=== PATIENT | female | born 1975 | race Caucasian/White ===

== ENCOUNTER 2017-10-06 18:50 | Observation (INO) | payer OTHER ==
[~2017-10-06] VITALS: Ht 162.6 cm; Wt 115.8 kg
--- NOTE | ~2017-10-06 | EKG ---
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
--- NOTE | ~2017-10-06 | HC ---
[facility] [place] [address] CONSULTATION Name: RODOLFO ELIZONDO Room #: 209-P ADM IN M.R.#: [id number] Admission: 10/06/17 Attend Phys: Varun Parks DO Discharge: Date of : 75 Report #: [id number] THIS REPORT FOR: //name// CC: Chon BROWN physician/PCP DATE OF SERVICE: 10/07/2017 INDICATION: Chest pain. HISTORY OF PRESENT ILLNESS: This is a 42-year-old female with a history of GERD, tobacco use, asthma, who presented with chest pain. She reports having a discomfort in the substernal area, nonradiating. It is associated with dyspnea and numbness of the fingers. It comes and goes. She did have an episode while she was in the ER at [facility] last week. A CT angio of the chest was unremarkable for PE. She was discharged home. She had a repeat episode yesterday, occurred while she was watching TV. There were no alleviating or aggravating factors. It does not appear to be associated with exertion. There is no history of fever, nausea, diarrhea or orthopnea. PAST MEDICAL HISTORY: Denies diabetes or hypertension. ALLERGIES: PENICILLIN. MEDICATIONS: None. SOCIAL HISTORY: Smokes half a pack of cigarettes per day. FAMILY HISTORY: Negative for premature CAD. REVIEW OF SYSTEMS: A full 10-point review of systems was performed. Only the pertinent positives and negatives are described in HPI. PHYSICAL EXAMINATION: VITAL SIGNS: Blood pressure 130/70, heart rate is 80 beats per minute. GENERAL APPEARANCE: An overweight female, in no acute respiratory distress. HEAD AND EYES: Normocephalic. Sclerae are anicteric. ENT: Oral mucosa moist. NECK: Supple. LUNGS: Clear to auscultation. CARDIAC: Regular rate and rhythm, S1, S2 positive. ABDOMEN: Soft, nontender. EXTREMITIES: No cyanosis and no edema. ECG reveals sinus tachycardia, no acute ST segment changes. [facility] [address] [place] [address] CONSULTATION Name: CARMEN ELIZONDOIRA Room #: 209-P [facility] IN .R.#: [id number] Admission: 10/06/17 Attend Phys: Varun Parks DO Discharge: Date of : 75 Report #: [id number] LABORATORY VALUES: Troponin is negative x 3. Sodium is 139, creatinine is 0.8. LDL is 140. White count is 9.1, hemoglobin is 11.7. IMPRESSION AND PLAN: 1. Chest pain syndrome, does not appear to be ischemic by history. Serial troponin levels are negative and the ECG is unremarkable. However, she does have significant CAD risk factors. The plan is to proceed with noninvasive stress testing. 2. Tobacco use, complete smoking cessation is advised. 3. Hypercholesterolemia, try to lower the LDL by dietary modifications. 4. Gastroesophageal reflux disease, probably a contributing factor to her current symptoms. <ELECTRONICALLY SIGNED> By: Saul Bashir MD 10/08/17811 [id number] Saul Bashir MD /yessica
--- NOTE | ~2017-10-06 | EXE ---
[facility] [address] [place] [address] STRESS ECHOCARDIOGRAM Name: RODOLFO ELIZONDO Room #: 209-P [facility] IN M.R.#: [id number] Admission: 10/06/17 Attend Phys: Varun Parks, Discharge: Date of : 75 Date of Service: 10/08/17 [facility] Report #: [id number] THIS REPORT FOR: //name// APPROVED REPORT Study performed: 10/08/2017 13:55:52 Exam: Stress Echocardiogram Indication: Chest pain Patient Location: In-Patient Stress Nurse: Chiquita Sumner RN Room #: 209 Status: routine Ht: 5 ft 4 in HR: 84 bpm BP: 133/71 mmHg Rhythm: NSR Medical History Allergies: Penicillan Procedure The patient underwent an Exercise Stress Test using the Fox Protocol. Blood pressure, heart rate, and EKG were monitored. An Echocardiogram was performed by hemodialysis technician in four stages in quad fashion. At peak stress, four selected images were obtained and placed side by side with resting images for comparison. Stress Test Details Stress Test: Exercise stress testing was performed using a Fox protocol. HR Resting HR: 84 bpm Max Heart Rate (APMHR): 178 bpm Max HR Achieved: 179 bpm Target HR (85% APMHR): 151 bpm % of APMHR: 100 Recovery HR: 107 bpm HR response to stress: Normal HR response to stress BP Resting BP: 133/71 mmHg Max BP: 165/85 mmHg Recovery BP: 130/64 mmHg ECG Resting ECG: Sinus Rhythm [facility] [address] [place] [address] STRESS ECHOCARDIOGRAM Name: RODOLFO ELIZONDO Room #: 209-P [facility] IN ..#: [id number] Admission: 10/06/17 Attend Phys: Varun Parks, Discharge: Date of : 75 Date of Service: 10/08/17 1500 Report #: [id number] Stress ECG: Sinus Rhythm, nonspecific ST-T abnormalities ST Change: Non-ischemic Maximum ST Deviation: 0 mm Clinical Reason for Termination: Severe fatigue Stress Symptoms: Fatigue, Dyspnea Exercise duration: 6 min sec Highest Stage Achieved: Stage 2: 2.5 mph at 12% grade. Exercise capacity: 7.20 METs Pre-Stress Echo The resting Echocardiogram showed normal left ventricular contractility with an estimated Ejection Fraction of about 55-60%. Normal wall motion in all segments on baseline images. Post-Stress Echo The stress Echocardiogram showed normal left ventricular contractility with an estimated Ejection Fraction of about 65-70%. Normal augmentation of wall motion in all segments on post stress images. Clinical No clinical or ECG evidence for ischemia. Conclusion Clinical Response: Non-ischemic Exercise Capacity: Below Average Stress ECG Response: Non-ischemic Stress Echo Images: Non-ischemic The left ventricle is normal in size and wall thickness in both the rest and stress images. Other Information Study Quality: Adequate <Conclusion> The left ventricle is normal in size and wall thickness in both the rest and stress images. <ELECTRONICALLY SIGNED> By: Saul Bashir MD 10/08/17 1500 1500 1500 Saul Bashir MD /INF
[2017-10-06 19:07] VITALS: BP 154/93
[2017-10-06 19:46] LABS: ABSOLUTE NEUTROPHILS 6.9 thou/uL (1.4-8.2); BASOPHILS 0.8 % (0.0-2.0); EOSINOPHILS 0.4 % (0.0-3.0); HEMATOCRIT 35.6 % (37.0-47.0); HEMOGLOBIN 11.7 gm/dL (12.0-15.0); LYMPHOCYTES 17.2 % (24.0-44.0); MCHC 32.8 g/dL (28.0-37.0); MCV 79.2 fL (80.0-100.0); MONOCYTES 4.3 % (1.0-8.0); PLATELET COUNT 389 thou/uL (150-400); POLYS 77.3 % (36.0-66.0); RBC 4.49 mil/uL (4.20-5.00); RDW 16.4 % (10.5-14.5)
[2017-10-06 19:47] LABS: ANION GAP 6 mmol/L (7-16); BUN 7 mg/dL (7-18); CALCIUM 9.4 mg/dL (8.5-10.1); CHLORIDE 102 mmol/L (98-107); CO2 27 mmol/L (21-32); CREATININE 0.9 mg/dL (0.6-1.0); GLUCOSE 123 mg/dL (74-106); POTASSIUM 3.4 mmol/L (3.5-5.1); SODIUM 135 mmol/L (136-145)
[2017-10-06 19:57] LABS: ALBUMIN 3.8 g/dL (3.4-5.0); MAGNESIUM 2.3 mg/dL (1.8-2.4); SGOT 24 U/L (15-37); SGPT 23 U/L (30-65); TOTAL BILIRUBIN 0.8 mg/dL (<0.1-1.0); TOTAL PROTEIN 8.4 g/dL (6.4-8.2); TROPONIN-I < 0.04 ng/mL (<0.06)
[2017-10-06 19:59] LABS: APTT 27.3 Seconds (24.5-32.8); D-DIMER 0.3 ug/mLFEU (0.19-0.50); PROTIME 10.4 Seconds (9.3-11.4)
[2017-10-06 22:01] VITALS: BP 130/76
[2017-10-06 22:24] VITALS: BP 136/76
[2017-10-06 22:42] VITALS: BP 132/70
[2017-10-07 04:44] LABS: CHOLESTEROL 197 mg/dL (<200); HDL CHOLESTEROL 46 mg/dL (>40); LDL CHOLESTEROL 140 mg/dL (<100); TC:HDL 4.3 Ratio (Not establshd); TRIGLYCERIDE 59 mg/dL (<150); VLDL 12 mg/dL (<40)
[2017-10-07 04:45] LABS: ANION GAP 7 mmol/L (7-16); BUN 6 mg/dL (7-18); CALCIUM 8.6 mg/dL (8.5-10.1); CHLORIDE 104 mmol/L (98-107); CO2 28 mmol/L (21-32); CREATININE 0.8 mg/dL (0.6-1.0); GLUCOSE 97 mg/dL (74-106); POTASSIUM 4.2 mmol/L (3.5-5.1); SODIUM 139 mmol/L (136-145); TROPONIN-I < 0.04 ng/mL (<0.06)
[2017-10-07 04:48] LABS: SERUM ASSESSMENT Clear
[2017-10-07 04:49] VITALS: BP 113/66
[2017-10-07 08:00] VITALS: BP 131/75
[2017-10-07 11:29] VITALS: BP 119/69
[2017-10-07 12:06] LABS: GLYCOHEMOGLOBIN (HGB A1C) 5.2 % (4.8-5.6)
[2017-10-07 16:35] VITALS: BP 115/70
[2017-10-07 17:29] LABS: AMP/METHAMP Negative (Negative); BARBITURATES Negative (Negative); BENZODIAZEPINES Negative (Negative); COCAINE Negative (Negative); METHADONE Negative (Negative); OPIATES Negative (Negative); PCP Negative (Negative)
[2017-10-07 20:40] VITALS: BP 117/57
[2017-10-08 04:44] VITALS: BP 125/62
[2017-10-08 08:00] VITALS: BP 157/82
[2017-10-08] MEDS ORDERED: ASPIR 8181 MG PO (09:11)
[2017-10-08 12:00] VITALS: BP 133/71
[2017-10-08 16:09] VITALS: BP 117/60
[2017-10-08 16:21] VITALS: BP 117/60
== END 2017-10-08 18:00 | disposition home or self-care (01) ==
LOC: ER 18:50 → 2N 21:49 → EROBS 21:49 → 2N 21:49
PROVIDERS: Emergency Medicine; Nurse Practitioner Family
DX: R07.89 Other chest pain (principal); K21.9 Gastro-esophageal reflux disease without esophagitis; J45.909 Unspecified asthma, uncomplicated; E78.00 Pure hypercholesterolemia, unspecified; R00.0 Tachycardia, unspecified; R63.0 Anorexia; R61 Generalized hyperhidrosis; R00.2 Palpitations; F17.210 Nicotine dependence, cigarettes, uncomplicated; I82.409 Acute embolism and thrombosis of unspecified deep veins of unspecified lower extremity
CPT/HCPCS: 10081